=== PATIENT | male | born 1960 | race Caucasian/White ===

== ENCOUNTER 2018-02-22 14:40 | Emergency (ER) | payer OTHER ==
[~2018-02-22] VITALS: Ht 182.9 cm; Wt 86.2 kg
[~2018-02-22 14:40] MED LIST: CHLORDIAZEPOXID25 M3 PO; FOLIC ACID1 M1 PO; IBUPROFEN800 M1 PO; THIAMINE HCL100 M1 PO
--- NOTE | 2018-02-22 15:03 | ED CARDIAC/CP/PALPITATIONS ---
History of Present Illness General Chief Complaint: Chest Pain Stated Complaint: BIBA, CP Source: patient, old records Exam Limitations: no limitations Vital Signs & Intake/Output Vital Signs & Intake/Output Vital Signs Date Time Temp Pulse Resp B/P B/P Pulse O2 O2 Flow FiO2 Mean Ox Delivery Rate 02/23 0944 97.0 80 18 156/88 96 Room Air 02/23 0719 98.2 90 18 174/84 98 08/ 0715 98.2 90 18 174/84 02/23 0515 98.2 90 20 163/100 08 0510 98.2 90 20 163/100 97 Room Air 02/23 0315 98.5 94 18 161/98 02/23 0301 98.5 94 18 161/98 98 Room Air 02/23 0115 90 18 134/88 02/23 0110 90 18 134/88 97 Room Air 02/22 2315 98.7 96 16 125/65 02/22 2243 98.7 96 16 125/65 96 Room Air 02/22 2115 98.2 71 17 122/74 02/22 2102 98.2 71 17 122/74 96 Room Air ED Intake and Output 02/23 0000 02/22 1200 Intake Total 1000 Output Total 350 Balance 650 Intake, IV 1000 Output, Urine 350 Patient 190 lb Weight Weight Reported by Patient Measurement Method Allergies Coded Allergies: NO KNOWN ALLERGIES (05/29/15) Reconcile Medications Chlordiazepoxide HCl 25 MG CAPSULE 1 CAP PO TID PRN ALCOHOL WITHDRAWAL ONE TAB 3X/DAY FOR 1 DAY THEN ONE TAB 2X/DAY FOR ONE DAY THEN ONE TAB FOR ONE DAY Folic Acid 1 MG TABLET 1 TAB PO DAILY REPLETION Thiamine HCl 100 MG TABLET 1 TAB PO DAILY REPLETION Triage Note: PT BIBA TO TRIAGE FOR C/O CHEST PAIN SINCE YESTERDAY, WORSE TODAY. PT ADMITS TO DRINKING TO TAKE THE CHEST PAIN AWAY. PT RECEIVED 1 SL NITRO EN ROUTE BY EMS WITH RELIEF. PT ALSO ASKING FOR ETOH DETOX. Triage Nurses Notes Reviewed? yes HPI: Patient presents to the emergency department with substernal chest pain that was unrelieved with alcohol. Patient states he gets this pain every day and drinks alcohol and the pain goes away however today it did not go away. Patient had a recent admission for alcohol dependency and acute withdrawal. Patient states he started drinking right away when he got out. Patient states that he is supposed to have a bed at a detox facility in [place]. He has no transportation. The chest pain is constant and that sharp in nature. There is no radiation. He rates it at 5 on a 10. (Reyna RAMIREZ,Shade Larson) HPI: 02/23/18 The patient will be signed out to Dr. Orellana at 7 AM (Aung Ibarra DO) Past History Travel History Traveled to [place] past 21 day No Medical History Any Pertinent Medical History? see below for history Neurological: NONE EENT: NONE Cardiovascular: NONE Respiratory: NONE Gastrointestinal: NONE Hepatic: NONE Renal: NONE Musculoskeletal: NONE Psychiatric: anxiety, depression Endocrine: NONE Surgical History Surgical History: non-contributory Psychosocial History What is your primary language Setswana Tobacco Use: Current Daily Use Daily Tobacco Use Amount/Type: => 5 Cigarettes daily ETOH Use: heavy use Illicit Drug Use: denies illicit drug use Family History Hx Contributory? No (Reyna RAMIREZ,Shade Larson) Review of Systems Review of Systems Constitutional: Reports: no symptoms. EENTM: Reports: no symptoms. Respiratory: Reports: no symptoms. Cardiovascular: Reports: see HPI, chest pain. GI: Reports: no symptoms. Genitourinary: Reports: no symptoms. Musculoskeletal: Reports: no symptoms. Skin: Reports: no symptoms. Neurological/Psychological: Reports: no symptoms. Hematologic/Endocrine: Reports: no symptoms. Immunologic/Allergic: Reports: no symptoms. All Other Systems: Reviewed and Negative (Renya RAMIREZ,Shade Larson) Physical Exam Physical Exam General Appearance: well developed/nourished, alert, awake, anxious, intoxicated Head: atraumatic, normal appearance Eyes: Bilateral: PERRL, EOMI, other (SLUGGISH). Ears, Nose, Throat: normal pharynx, normal ENT inspection, hearing grossly normal Neck: normal inspection, supple, full range of motion Respiratory: normal breath sounds, chest non-tender, no respiratory distress, lungs clear Cardiovascular: regular rate/rhythm, normal peripheral pulses Gastrointestinal: normal bowel sounds, soft, non-tender, no organomegaly Back: normal inspection, normal range of motion Extremities: normal inspection, normal capillary refill, normal range of motion, no edema Neurologic/Psych: no motor/sensory deficits, awake, alert, oriented x 3, normal gait, normal mood/affect Skin: intact, normal color, warm/dry Core Measures ACS in differential dx? No CVA/TIA Diagnosis No Sepsis Present: No Sepsis Focused Exam Completed? No (Reyna RAMIREZ,Shade Larson) Progress Differential Diagnosis: AMI, hyperthyroid, musculoskeletal pain, myocarditis, pancreatitis, pericarditis, pneumonia, pneumothorax, pulmonary embolism Diagnostic Imaging: Viewed by Me: Radiology Read. Discussed w/RAD: Radiology Read. CXR Impression: PATIENT: CHELSEA RAMOS PRESENT AGE: 57 PATIENT ACCOUNT NO: [id number] : 62 LOCATION: [facility] ORDERING PHYSICIAN: Valentín PATEL SERVICE DATE: 02/22/18 EXAM TYPE: RAD - XRY-CHEST XRAY, TWO VIEWS EXAMINATION: XR CHEST CLINICAL INFORMATION: Chest pain COMPARISON: None TECHNIQUE: 2 views of the chest were obtained. FINDINGS: Heart size is normal. Mediastinal contours are normal. Lungs are clear without consolidation, effusion or pneumothorax. Visualized osseous structures appear intact. IMPRESSION: No acute cardiopulmonary process DICTATED BY: Noa Mckenzie MD DATE/TIME DICTATED:02/22/181618 QUICK TECHNICIAN:BRITTNEY DATE/TIME TRANSCRIBED:02/22/181618 CONFIDENTIAL, DO NOT COPY WITHOUT APPROPRIATE AUTHORIZATION. <Electronically signed in Other Vendor System> SIGNED BY: Noa Mckenzie MD 02/22/18 1624 Initial ED EKG: NSR, no ST T wave changes Prior EKG: unchanged Repeat EKG: unchanged Hand-Off Endorsed To: Aung Ibarra DO Endorsed Time: 1899 Pending: consult, labs Comments: [facility] Does not have a bed for him at this time. Patient does not meet criteria for in-hospital treatment for alcohol dependency. Patient is stable for discharge. (Reyna RAMIREZ,Shade Larson) Plan of Care: Orders Procedure Date/time Status Regular Diet 02/23 B Active TROPONIN LEVEL 02/22 190 Complete EKG 02/22 1900 Active CIWA 02/22 1512 Active URINE DRUGS OF ABUSE 02/22 144 Complete TROPONIN LEVEL 02/22 1445 Complete ETHANOL 02/22 1445 Complete COMPREHENSIVE METABOLIC PANEL 02/22 1445 Complete CBC WITHOUT DIFFERENTIAL 02/22 1445 Complete EKG 02/22 1442 Active Laboratory Tests 02/22/18 1905: Troponin I < 0.01 02/22/18 1600: Urine Opiates Screen < 100, Methadone Screen < 40, Barbiturate Screen < 60, Ur Phencyclidine Scrn < 6.00, Amphetamines Screen < 100, U Benzodiazepines Scrn < 85, Urine Cocaine Screen < 50, Urine Cannabis Screen < 5.00 02/22/18 1520: Anion Gap 13, Estimated GFR > 60, BUN/Creatinine Ratio 8.6, Glucose 93, Calcium 8.6, Total Bilirubin 0.5, AST 62 H, ALT 38, Alkaline Phosphatase 77, Troponin I < 0.01, Total Protein 7.4, Albumin 4.6, Globulin 2.8, Albumin/Globulin Ratio 1.6 , CBC w Diff NO MAN DIFF REQ, RBC 4.46 L, MCV 90.1, MCH 31.7 H, MCHC 35.2, RDW 13.6, MPV 5.8 L, Gran % 67.0, Lymphocytes % 26.9, Monocytes % 5.1, Eosinophils % 0.2, Basophils % 0.8, Absolute Granulocytes 6.6 H, Absolute Lymphocytes 2.7, Absolute Monocytes 0.5, Absolute Eosinophils 0, Absolute Basophils 0.1, Serum Alcohol 330.0 (Aung Ibarra DO) Departure Departure Disposition: HOME OR SELF CARE Condition: Stable Clinical Impression Primary Impression: Alcohol dependency Secondary Impressions: Chest pain, unspecified Referrals: Patient Has No Primary Care Dr (PCP/Family) Additional Instructions: Follow-up with a detox facility. Return for any concerns. Departure Forms: Customer Survey General Discharge Information (Shade Orellana MD) Departure Comments 02/23/18 5:18 AM The patient complained of epigastric discomfort. He requested something for nausea. Also something for anxiety. He was given gabapentin and Zofran. He remains pending disposition by crisis. The patient was signed back out to Dr. Orellana at 7 AM. (Aung Ibarra DO) Critical Care Note Critical Care Note Critical Care Time: non-applicable (Shade Orellana MD) Critical Care Note Critical Care Note Critical Care Time: non-applicable (Shade Orellana MD)
[2018-02-22 15:36] LABS: ABSOLUTE BASOPHIL COUNT 0.1 /CUMM (0.0-0.2); ABSOLUTE EOSINOPHIL COUNT 0 /CUMM (0.0-0.7); ABSOLUTE GRANULOCYTE CT 6.6 /CUMM (1.4-6.5); ABSOLUTE LYMPH COUNT 2.7 /CUMM (1.2-3.4); ABSOLUTE MONOCYTE COUNT 0.5 /CUMM (0.10-0.60); BASOPHIL % 0.8 % (0.0-2.0); EOSINOPHIL % 0.2 % (0-5); HEMATOCRIT 40.1 % (42-52); MEAN CORPUSCULAR HGB 31.7 PG (27.0-31.0); MEAN CORPUSCULAR HGB CONC 35.2 G/DL (33.0-37.0); MEAN CORPUSCULAR VOLUME 90.1 FL (80.0-94.0); MEAN PLATELET VOLUME 5.8 FL (7.4-10.4); PLATELET COUNT 182 /CUMM (130-400); RBC DISTRIBUTION WIDTH 13.6 % (11.5-14.5); RED BLOOD CELL CT 4.46 /CUMM (4.70-6.10); WHITE BLOOD CELL COUNT 9.9 /CUMM (4.8-10.8)
--- NOTE | 2018-02-22 16:24 | RADIOLOGY REPORT ---
EXAMINATION: XR CHEST CLINICAL INFORMATION: Chest pain COMPARISON: None TECHNIQUE: 2 views of the chest were obtained. FINDINGS: Heart size is normal. Mediastinal contours are normal. Lungs are clear without consolidation, effusion or pneumothorax. Visualized osseous structures appear intact. IMPRESSION: No acute cardiopulmonary process
[2018-02-23 09:44] VITALS: BP 156/88
== END 2018-02-23 10:28 ==
LOC: ERH 14:40
PROVIDERS: Physician Assistant Medical
DX: F10.20 Alcohol dependence, uncomplicated (principal); R07.89 Other chest pain
CPT/HCPCS: 71046; 80307; 93005; 93010; 96374; G0480; J2405; J3101